=== PATIENT | female | born 1980 | race Two or more races ===

== ENCOUNTER 2019-02-19 00:39 | Emergency (ER) | payer SELFPAY ==
[2019-02-19] MEDS ORDERED: NORMAL SALINE 1000 ML 1,000 ML IV ONE (01:36)
--- NOTE | 2019-02-19 01:36 | ER Document Report ---
ED General - General Chief Complaint: Abdominal Pain Stated Complaint: ABDOMINAL PAIN Time Seen by Provider: 02/19/19 01:25 - Related Data Allergies/Adverse Reactions: No Known Allergies Allergy (Unverified 01/16/18 09:10) Past Medical History - Social History Smoking Status: Never Smoker Family History: Reviewed & Not Pertinent Patient has suicidal ideation: No Patient has homicidal ideation: No Renal/ Medical History: Denies: Hx Peritoneal Dialysis Past Surgical History: Reports: Hx Section - Immunizations Hx Diphtheria, Pertussis, Tetanus Vaccination: No Physical Exam - Vital signs Vitals: Temp Pulse Resp BP Pulse Ox 97.6 F 63 15 110/77 99 02/19/19 00:55 02/19/19 00:55 02/19/19 00:55 02/19/19 00:55 02/19/19 00:55 - Notes Notes: Patient presents emergency department lower abdominal pain is been going on for the past day and a half. The pain is been constant in nature. She is a little bit of nausea but no vomiting no diarrhea or dysuria no vaginal bleeding or discharge. Said no fevers with this. And normal bowel movements. Diet has been decreased but eating does not really seem to affect the pain. Dinner 4 PM which did not really change the pain no previous history of similar type of pain is not taking anything for the pain Past medical history is unremarkable. Social history does not smoke or drink at all. Last menstrual period was over 23rd and she is a little bit late for her. Now Review of systems pertinent positives and negatives in HPI otherwise all the systems were reviewed and acutely negative PHYSICIAN EXAM -vital signs are noted triage note and note from triage reviewed GENERAL: Well-appearing, well-nourished and in __no acute distress____ HEAD: Atraumatic, normocephalic. EYES: Pupils equal round and reactive to light, extraocular movements intact, sclera anicteric, conjunctiva are normal. ENT: nares patent, oropharynx clear without exudates. Moist mucous membranes. NECK: supple without lymphadenopathy LUNGS: Breath sounds clear to auscultation bilaterally and equal. No wheezes rales or rhonchi. HEART: Regular rate and rhythm without murmurs ABDOMEN: Soft, there is mild tenderness across the lower abdomen. Is not localized over McBurney's point. The upper abdomen is nontender. Is no pain with abduction of the hips EXTREMITIES: No deformity, no edema. NEUROLOGICAL: No focal neurological deficits. Moves all extremities spontaneously and on command. PSYCH: Normal mood, normal affect. SKIN: Warm, Dry, normal turgor, no rashes or lesions noted. BACK-nontender in the midline Differential diagnosis includes viral syndrome UTI variant cyst Course - Re-evaluation Re-evalutation: 02/19/19 01:52 02/19/19 01:57 02/19/19 05:40 ED patient is remained stable she was given IV fluids and morphine. He has had serial exams. Abdominal pain is improved significantly Medical decision-making patient presents with lower abdominal pain is been gone for 2 or 3 days. No nausea vomiting or fevers work-up was unremarkable. She is feeling better and at this point he thinks to be discharged home. She has no is of a surgical abdomen. Fact is probably related to her dysfunction uterine bleeding. Note is that the history was obtained using the daughter and who speak Sami instructions were explained to them Dictation was done using voice recognition software. There may be some grammatical errors which are unintentional I discussed results of laboratory findings and diagnostic test with patient/family. The treatment plan was explained and I reviewed the discharge instructions with them. Questions were answered. The patient/family verbalizes understanding - Vital Signs Vital signs: Temp Pulse Resp BP Pulse Ox 97.5 F 63 18 99/62 L 94 02/19/19 03:42 02/19/19 03:42 02/19/19 03:42 02/19/19 03:42 02/19/19 03:42 - Laboratory Result Diagrams: 02/19/19 01:28 02/19/19 01:28 Laboratory results interpreted by me: 02/19/19 02/19/19 02/19/19 01:28 01:28 02:00 RDW 14.6 H Creatinine 0.43 L AST 39 H Urine Blood LARGE H Discharge - Discharge Clinical Impression: Dysfunctional uterine bleeding Abdominal pain Qualifiers: Abdominal location: lower abdomen, unspecified Qualified Code(s): R10.30 - Lower abdominal pain, unspecified Condition: Good Disposition: HOME, SELF-CARE Instructions: Abdominal Pain ([facility]), Dysfunctional Uterine Bleeding ([facility]), Pain Medication Injection ([facility]) Additional Instructions: Please review the discharge instructions, they will tell you about your disease/injury and what you need to return to the ED for Return to the ED if you feel worse or can follow-up with your family doctor Stay on a bland diet for the next 2 to 3 days Follow-up in the clinic in 2 to 3 days if not better otherwise in 1 week if you have not had a. Prescriptions: Ketorolac Tromethamine [Toradol 10 mg Tablet] 10 mg PO Q6HP PRN #15 tablet PRN Reason: Ondansetron HCl [Zofran 4 mg Tablet] 1 tab PO Q4H PRN #10 tablet PRN Reason: Forms: Return to School Print Language: Ivorian
[2019-02-19] MEDS ORDERED: ONDANSETRON HCL INJ/PF 4 MG/2 ML SDV IV ONE (01:37)
[2019-02-19] MEDS ORDERED: MORPHINE SULFATE 10 MG/ML INJ IV ONE (01:37)
[2019-02-19 01:51] LABS: ABSOLUTE BASOPHILS # (AUTO) 0.1 10^3/uL (0.0-0.2); ABSOLUTE EOSINOPHILS # (AUTO) 0.2 10^3/uL (0.0-0.6); ABSOLUTE LYMPHOCYTES (AUTO) 1.7 10^3/uL (0.5-4.7); ABSOLUTE MONOCYTES (AUTO) 0.5 10^3/uL (0.1-1.4); ABSOLUTE NEUT (AUTO) 5.4 10^3/uL (1.7-8.2); BASOPHILS % (AUTO) 0.8 % (0-2); EOSINOPHILS % (AUTO) 2.9 % (0-6); HEMATOCRIT 39.6 % (36.0-47.0); LYMPHOCYTES % (AUTO) 22.1 % (13-45); MEAN CORPUSCULAR HEMOGLOBIN 28.2 pg (27.0-33.4); MEAN CORPUSCULAR HGB CONC 35.3 g/dL (32.0-36.0); MEAN CORPUSCULAR VOLUME 80 fl (80-97); MONOCYTES % (AUTO) 6.5 % (3-13); PLATELET COUNT 233 10^3/uL (150-450); RED BLOOD COUNT 4.95 10^6/uL (3.72-5.28); RED CELL DISTRIBUTION WIDTH 14.6 % (11.5-14.0); SEGMENTED NEUTROPHILS % (AUTO) 67.7 % (42-78); TOTAL CELLS COUNTED % (AUTO) 100 %; WHITE BLOOD COUNT 7.9 10^3/uL (4.0-10.5)
[2019-02-19 01:58] LABS: ALKALINE PHOSPHATASE 87 U/L (38-126); ANION GAP 9 (5-19); ASPARTATE AMINO TRANSFERASE 39 U/L (14-36); BILIRUBIN,DIRECT 0.1 mg/dL (0.0-0.4); BILIRUBIN,TOTAL 0.5 mg/dL (0.2-1.3); BLOOD UREA NITROGEN 19 mg/dL (7-20); CALCIUM 8.9 mg/dL (8.4-10.2); CARBON DIOXIDE 25 mmol/L (22-30); CHLORIDE 107 mmol/L (98-107); GLUCOSE 81 mg/dL (75-110); POTASSIUM 3.9 mmol/L (3.6-5.0); TOTAL PROTEIN 7.3 g/dL (6.3-8.2)
[2019-02-19 02:28] LABS: APPEARANCE,URINE CLEAR; BILIRUBIN,URINE NEGATIVE (NEGATIVE); COLOR,URINE YELLOW; GLUCOSE, URINE NEGATIVE (NEGATIVE); KETONES,URINE NEGATIVE (NEGATIVE); LEUKOCYTE ESTERASE,URINE NEGATIVE (NEGATIVE); NITRITE,URINE NEGATIVE (NEGATIVE); PROTEIN,URINE NEGATIVE (NEGATIVE); URINE SPECIFIC GRAVITY 1.016; UROBILINOGEN,URINE NEGATIVE mg/dL (<2.0)
[2019-02-19 03:44] VITALS: BP 99/62
== END 2019-02-19 03:49 | disposition home or self-care (01) ==
LOC: ER 00:39
DX: N93.8 Other specified abnormal uterine and vaginal bleeding (principal); R10.30 Lower abdominal pain, unspecified; R11.0 Nausea
CPT/HCPCS: 99284; 96361; 96374; 96375; 36415; 83690; 85025; 81025; 80053; 81001; J2270; J2405; J7030

== ENCOUNTER 2019-02-21 20:08 | Emergency (ER) | payer OTHER ==
[2019-02-21] MEDS ORDERED: MORPHINE SULFATE 10 MG/ML INJ IV ONE (21:37)
--- NOTE | 2019-02-21 21:39 | ER Document Report ---
ED Medical Screen (RME) - General Chief Complaint: Abdominal Pain Stated Complaint: ABDOMINAL PAIN,DIARRHEA Time Seen by Provider: 02/21/19 21:36 - HPI Notes: 02/21/19 21:37 Patient is a 38-year-old female no significant past medical history who presents for reevaluation after being here a couple days ago for abdominal pain. Patient states that she has not had any improvement in her abdominal pain and has had decreased p.o. intake. She does have some associated diarrhea. Pain is to the mid abdomen and does not radiate. She did not have any imaging performed at her last visit, but did have unremarkable labs at that time. Patient was reported to have been discharged after medicines and reports that she was feeling much better. Patient states that the pain returned and has been constant. No fever, chest pain, shortness of breath, back pain. No dysuria. No vaginal bleeding/odor/discharge. I have treated and performed a rapid initial assessment of this patient. A comprehensive ED assessment and evaluation of the patient, analysis of test results and completion of medical decision making process will be conducted by additional ED providers. PHYSICAL EXAMINATION: GENERAL: Well-appearing, well-nourished and in no acute distress. A&Ox4. Answers questions appropriately. Abdomen: Limited exam in triage, but patient does have mid abdominal tenderness. Abdomen is otherwise soft. - Related Data Allergies/Adverse Reactions: No Known Allergies Allergy (Unverified 01/16/18 09:10) Past Medical History Renal/ Medical History: Denies: Hx Peritoneal Dialysis Past Surgical History: Reports: Hx Section - Immunizations Hx Diphtheria, Pertussis, Tetanus Vaccination: No Physical Exam - Vital signs Vitals: Temp Pulse Resp BP Pulse Ox 98.3 F 68 18 135/86 H 99 02/21/19 21:33 02/21/19 21:33 02/21/19 21:33 02/21/19 21:33 02/21/19 21:33 Course - Vital Signs Vital signs: Temp Pulse Resp BP Pulse Ox 98.3 F 68 18 135/86 H 99 02/21/19 21:33 02/21/19 21:33 02/21/19 21:33 02/21/19 21:33 02/21/19 21:33
[2019-02-21 22:45] LABS: ABSOLUTE EOSINOPHILS # (AUTO) 0.3 10^3/uL (0.0-0.6); ABSOLUTE LYMPHOCYTES (AUTO) 1.9 10^3/uL (0.5-4.7); ABSOLUTE MONOCYTES (AUTO) 0.7 10^3/uL (0.1-1.4); BASOPHILS % (AUTO) 0.8 % (0-2); EOSINOPHILS % (AUTO) 4.9 % (0-6); HEMATOCRIT 39.4 % (36.0-47.0); HEMOGLOBIN 13.7 g/dL (12.0-15.5); LYMPHOCYTES % (AUTO) 32.5 % (13-45); MEAN CORPUSCULAR HEMOGLOBIN 28.1 pg (27.0-33.4); MEAN CORPUSCULAR HGB CONC 34.7 g/dL (32.0-36.0); MEAN CORPUSCULAR VOLUME 81 fl (80-97); MONOCYTES % (AUTO) 11.2 % (3-13); PLATELET COUNT 239 10^3/uL (150-450); RED BLOOD COUNT 4.85 10^6/uL (3.72-5.28); RED CELL DISTRIBUTION WIDTH 14.8 % (11.5-14.0); SEGMENTED NEUTROPHILS % (AUTO) 50.6 % (42-78); TOTAL CELLS COUNTED % (AUTO) 100 %; WHITE BLOOD COUNT 5.9 10^3/uL (4.0-10.5)
[2019-02-21 22:59] LABS: ALKALINE PHOSPHATASE 124 U/L (38-126); ANION GAP 9 (5-19); ASPARTATE AMINO TRANSFERASE 80 U/L (14-36); BILIRUBIN,DIRECT 0.1 mg/dL (0.0-0.4); BILIRUBIN,TOTAL 0.4 mg/dL (0.2-1.3); BLOOD UREA NITROGEN 13 mg/dL (7-20); CALCIUM 10.1 mg/dL (8.4-10.2); CARBON DIOXIDE 27 mmol/L (22-30); CHLORIDE 103 mmol/L (98-107); GLUCOSE 98 mg/dL (75-110); TOTAL PROTEIN 7.4 g/dL (6.3-8.2)
[2019-02-22 00:39] LABS: APPEARANCE,URINE CLEAR; BILIRUBIN,URINE NEGATIVE (NEGATIVE); COLOR,URINE STRAW; GLUCOSE, URINE NEGATIVE (NEGATIVE); KETONES,URINE NEGATIVE (NEGATIVE); PROTEIN,URINE NEGATIVE (NEGATIVE); URINE SPECIFIC GRAVITY 1.008; UROBILINOGEN,URINE NEGATIVE mg/dL (<2.0)
--- NOTE | 2019-02-22 01:42 | RADIOLOGY REPORT (SQ) ---
EXAM DESCRIPTION: CT ABDOMEN PELVIS WITH IV CONTRAST COMPLETED DATE/TME: 02/21/2019 21:37 CLINICAL HISTORY: 38 years, Female, abd pain. HCG NEG COMPARISON: None. TECHNIQUE: Axial CT images of the abdomen and pelvis were obtained after the administration of IV contrast. Sagittal and coronal reformats were performed. DLP 766 Images stored on PACS. All CT scanners at this facility use dose modulation, iterative reconstruction, and/or weight based dosing when appropriate to reduce radiation dose to as low as reasonably achievable (ALARA). [facility]: Dose Right [facility]: CareDose [facility]: Dose Right [facility]: Teradose 4D [facility]: [employer] LIMITATIONS: None. FINDINGS: The lung bases are clear. The liver, gallbladder, pancreas, spleen, and adrenal glands are unremarkable. Both kidneys enhance normally. There is no hydronephrosis. There is a trace amount of free fluid. There is no free air. The abdominal aorta is normal in caliber. There is no lymphadenopathy. The stomach appears unremarkable. There is mild thickening of the small bowel. The appendix is normal. Fluid is noted within the colon. The uterus and urinary bladder are unremarkable. There are no lytic or blastic bone lesions. IMPRESSION: Mild thickening of the small bowel with fluid noted within the colon. This is likely due to an enterocolitis or diarrhea. Normal appendix. TECHNICAL DOCUMENTATION: Quality ID # [id number]: Final reports with documentation of one or more dose reduction techniques (e.g., Automated exposure control, adjustment of the mA and/or kV according to patient size, use of iterative reconstruction technique) copyright 2011 [employer]- All Rights Reserved
[2019-02-22] MEDS ORDERED: CIPROFLOXACIN HCL 500 MG TABLET PO ONE (02:41)
[2019-02-22] MEDS ORDERED: METRONIDAZOLE 500 MG TABLET PO ONE (02:41)
--- NOTE | 2019-02-22 02:45 | ER Document Report ---
ED GI/ - General Chief Complaint: Abdominal Pain Stated Complaint: ABDOMINAL PAIN,DIARRHEA Time Seen by Provider: 02/21/19 21:36 Notes: Patient is a 38-year-old female that comes to the emergency department for chief complaint of mid abdominal pain. She states that every time she eats she has to run to the bathroom and have an episode of diarrhea. She states she has had about 12 episodes of diarrhea, nonbloody today. She denies flank pain, fever. She was seen 2 days ago and had negative labs, sent home on Toradol and Zofran but states her symptoms have actually worsened including increased diarrhea. She denies sick contacts, recent travel although she states she has been handling quite a bit of chicken recently. She denies any daily medications, past medical history of . - Related Data Allergies/Adverse Reactions: No Known Allergies Allergy (Unverified 01/16/18 09:10) Past Medical History - General Information source: Patient - Social History Smoking Status: Never Smoker Frequency of alcohol use: None Drug Abuse: None Lives with: Family Family History: Reviewed & Not Pertinent Patient has suicidal ideation: No Patient has homicidal ideation: No Renal/ Medical History: Denies: Hx Peritoneal Dialysis Past Surgical History: Reports: Hx Section - Immunizations Hx Diphtheria, Pertussis, Tetanus Vaccination: No Review of Systems - Review of Systems Constitutional: No symptoms reported EENT: No symptoms reported Cardiovascular: No symptoms reported Respiratory: No symptoms reported Gastrointestinal: See HPI Genitourinary: No symptoms reported Female Genitourinary: No symptoms reported Musculoskeletal: No symptoms reported Skin: No symptoms reported Hematologic/Lymphatic: No symptoms reported Neurological/Psychological: No symptoms reported Physical Exam - Vital signs Vitals: Temp Pulse Resp BP Pulse Ox 98.3 F 68 18 135/86 H 99 02/21/19 21:33 02/21/19 21:33 02/21/19 21:33 02/21/19 21:33 02/21/19 21:33 - Notes Notes: GENERAL: Alert, interacts well. No acute distress. HEAD: Normocephalic, atraumatic. EYES: Pupils equal, round, and reactive to light. Extraocular movements intact. ENT: Oral mucosa moist, tongue midline. Oropharynx unremarkable. Airway patent. NECK: Full range of motion. Supple. Trachea midline. LUNGS: Clear to auscultation bilaterally, no wheezes, rales, or rhonchi. No respiratory distress. HEART: Regular rate and rhythm. No murmur ABDOMEN: Minimal generalized tenderness, nonspecific, no guarding GENITOURINARY: Deferred EXTREMITIES: Moves all 4 extremities spontaneously. No edema, normal radial and dorsalis pedis pulses bilaterally. No cyanosis. BACK: no cervical, thoracic, lumbar midline tenderness. No saddle anesthesia, normal distal neurovascular exam. Moves all extremities in full range of motion. NEUROLOGICAL: Alert and oriented x3. Normal speech. Cranial nerves II through XII grossly intact. PSYCH: Normal affect, normal mood. SKIN: Warm, dry, normal turgor. No rashes or lesions noted. Course - Re-evaluation Re-evalutation: Patient speaks Kazakh well and requested her daughter fill her in with gaps. Her daughter speaks good Marshallese and Kazakh. This was performed without difficulty. Patient has a soft benign abdomen but she is still having frequent diarrhea, she was easily able to give us a sample on request. CBC, chemistry still unremarkable, urinalysis unremarkable. CAT scan was performed in triage, based on her exam I have a very low suspicion of acute abdomen. CAT scan does indicate enterocolitis. Patient also states she has been exposed to chicken cooking recently but not occupationally and she believes she washed this well. Because of her frequent diarrhea however she will be treated for enterocolitis with Cipro and Flagyl, symptom management. Stool culture and C. difficile placed. Discussed follow-up and return precautions. Patient states appreciation and agreement. - Vital Signs Vital signs: Temp Pulse Resp BP Pulse Ox 97.5 F 59 L 15 108/75 99 02/22/19 04:36 02/22/19 04:36 02/22/19 04:36 02/22/19 04:36 02/22/19 04:36 - Laboratory Result Diagrams: 02/21/19 22:19 02/21/19 22:19 Laboratory results interpreted by me: 02/21/19 02/21/19 02/21/19 22:19 22:19 22:19 RDW 14.8 H AST 80 H Urine Blood LARGE H Discharge - Discharge Clinical Impression: Enterocolitis Abdominal pain Qualifiers: Abdominal location: generalized Qualified Code(s): R10.84 - Generalized abdominal pain Diarrhea Qualifiers: Diarrhea type: unspecified type Qualified Code(s): R19.7 - Diarrhea, unspecified Condition: Stable Disposition: HOME, SELF-CARE Additional Instructions: Christianson evaluacin y evaluacin muestran colitis entrica, jose infeccin en el intestino. Gerald los antibiticos segn lo prescrito hasta el final, tome Phenergan si es necesario para las nuseas, comience con alimentos suaves y progrese lentamente. Regrese si empeora, incluyendo dolor intenso, vmitos, fiebre o cualquier otro sntoma relacionado o que empeore. Your workup and evaluation shows enterocolitis, an infection in the intestine. Take antibiotics as prescribed until the end, take Phenergan if necessary for nausea, start with soft foods and progress slowly. Return if it gets worse, including severe pain, vomiting, fever or any other concerning or worsening symptoms. Prescriptions: Ciprofloxacin HCl [Cipro 500 mg Tablet] 500 mg PO BID 7 Days #14 tablet Metronidazole [Flagyl 500 mg Tablet] 500 mg PO TID 7 Days #21 tablet Promethazine HCl [Phenergan 25 mg Tablet] 25 mg PO Q6H PRN #15 tablet PRN Reason: Forms: Treatment of Relative/Child
[2019-02-22] MEDS ORDERED: NORMAL SALINE 1000 ML 1,000 ML IV ONE (03:12)
[2019-02-22] MEDS ORDERED: HYDROCODONE/ACETAMINOPHEN 5-325 MG TABLET PO ONE (03:12)
[2019-02-22] MEDS ORDERED: ONDANSETRON HCL INJ/PF 4 MG/2 ML SDV IV ONE (03:12)
[2019-02-22 04:36] VITALS: BP 108/75
[2019-02-22 09:44] LABS: C DIFFICILE GDH NEGATIVE (NEGATIVE)
== END 2019-02-22 04:25 | disposition home or self-care (01) ==
LOC: ER 20:08
DX: K52.9 Noninfective gastroenteritis and colitis, unspecified (principal); R10.84 Generalized abdominal pain; R10.817 Generalized abdominal tenderness
CPT/HCPCS: 99284; 96361; 96374; 36415; 87045; 87205; 83690; 84703; 85025; 80053; 81001; 87324; 87449; 74177; J2405; J7030